=== PATIENT | male | born 2000 | race Two or more races ===

== ENCOUNTER → 2023-05-30 | Outpatient (CLI) | payer OTHER | END | disposition home or self-care (01) | LOC: RAH 11:08 → EEVIPCON 11:08 | PROVIDERS: ATTEND Family Medicine | DX: M47.814 Spondylosis without myelopathy or radiculopathy, thoracic region (principal); M47.816 Spondylosis without myelopathy or radiculopathy, lumbar region; M54.50 Low back pain, unspecified | CPT/HCPCS: 72070; 72100 ==